=== PATIENT | male | born 1980 | race Caucasian/White ===

== ENCOUNTER 2016-07-18 17:53 | Emergency (ER) | payer OTHER ==
[~2016-07-18] VITALS: Ht 193 cm; Wt 140.1 kg
[~2016-07-18 17:53] MED LIST: ALBUTEROL SULF8.5 GM IH; ASPIR 8181 M1 PO; ASPIR-LOW81 MG PO; B COMPLETE1 EACH PO; CEFDINIR300 MG PO; ENDOCET 5-3251 EACH PO; EPIPEN ADU0.3 MG/0.3 IM; FLEXERIL10 MG PO; GABAPENTIN100 MG PO; INDOCIN25 MG PO; LAMISIL AT12 GM TP; LEVAQUIN750 MG PO; LIDODERM 5% P1 PATCH TD; LOTRIMIN AF24 GM TP; MEDROL DOSEPAK4 MG PO; METAMUCIL FIBE3.4 GM PO; MOTRIN800 MG PO; NAPROSYN500 MG PO; NAPROXEN500 MG PO; NICOTINE PATCH1 EACH TD; NITROSTAT0.4 MG SL; OXAYDO5 MG PO; OXAYDO7.5 MG PO; OXYCODONE HCL10 MG PO; PERCOCET 5/31 TABLET PO; PREDNISONE10 MG PO; PREDNISONE20 MG PO; PREDNISONE50 MG PO; PROAIR HFA8.5 GM IH; PROTONIX40 MG PO; SKELAXIN800 MG PO; TUSSIN COUGH15 MG PO; ULTRAM50 MG PO; VALIUM5 MG PO; VENTOLIN HFA18 GM IH; VITAMIN C1000 M1 PO; ZITHROMAX Z-PA250 MG PO
[2016-07-18] MEDS ORDERED: MOTRIN600 MG PO (21:10)
[2016-07-18] MEDS ORDERED: NORCO 5/3251 TABLET PO (21:10)
[2016-07-18] MEDS ORDERED: VALIUM5 MG PO (21:10)
[2016-07-18 21:22] VITALS: BP 143/95
== END 2016-07-18 21:30 | disposition home or self-care (01) ==
LOC: EME 17:53
DX: M54.5 Low back pain (principal); M54.2 Cervicalgia; K21.9 Gastro-esophageal reflux disease without esophagitis; F17.200 Nicotine dependence, unspecified, uncomplicated; Z88.0 Allergy status to penicillin
CPT/HCPCS: 99281; 99283

== ENCOUNTER 2016-08-14 11:12 | Emergency (ER) | payer OTHER ==
[~2016-08-14] VITALS: Ht 193 cm; Wt 140.9 kg
[~2016-08-14 11:12] MED LIST changes: +MOTRIN600 MG PO; +NORCO 5/3251 TABLET PO
[2016-08-14] MEDS ORDERED: NAPROSYN500 MG PO (15:34)
[2016-08-14 16:03] VITALS: BP 125/77
== END 2016-08-14 16:04 | disposition home or self-care (01) ==
LOC: EME 11:12
DX: S80.01XA Contusion of right knee, initial encounter (principal); V48.4XXA Person boarding or alighting a car injured in noncollision transport accident, initial encounter
CPT/HCPCS: 73564; 99281; 99283

== ENCOUNTER 2017-01-11 18:16 | Emergency (ER) | payer OTHER ==
[~2017-01-11] VITALS: Ht 193 cm; Wt 146.0 kg
[2017-01-11] MEDS ORDERED: ANUSOL HC,ANUCO25 MG PR (19:14)
[2017-01-11 19:33] VITALS: BP 179/73
== END 2017-01-11 19:37 | disposition home or self-care (01) ==
LOC: EME 18:16
DX: K60.0 Acute anal fissure (principal); K64.9 Unspecified hemorrhoids; L25.9 Unspecified contact dermatitis, unspecified cause; Z80.0 Family history of malignant neoplasm of digestive organs; K21.9 Gastro-esophageal reflux disease without esophagitis; Z86.19 Personal history of other infectious and parasitic diseases; F17.200 Nicotine dependence, unspecified, uncomplicated; Z88.0 Allergy status to penicillin; Z91.018 Allergy to other foods; Z91.030 Bee allergy status
CPT/HCPCS: 99281; 99284

== ENCOUNTER 2017-06-01 11:36 | Emergency (ER) | payer OTHER ==
[~2017-06-01] VITALS: Ht 195.6 cm; Wt 132.1 kg
[~2017-06-01 11:36] MED LIST changes: +ANUSOL HC,ANUCO25 MG PR
[2017-06-01 13:12] VITALS: BP 157/79
[2017-06-01] MEDS ORDERED: BACTRIM,SEPT1 TABLET PO (13:17)
[2017-06-01] MEDS ORDERED: KEFLEX500 MG PO (13:17)
== END 2017-06-01 13:39 | disposition home or self-care (01) ==
LOC: EME 11:36
DX: L02.413 Cutaneous abscess of right upper limb (principal); K21.9 Gastro-esophageal reflux disease without esophagitis; F17.200 Nicotine dependence, unspecified, uncomplicated; Z88.0 Allergy status to penicillin; Z88.5 Allergy status to narcotic agent
CPT/HCPCS: 99281; 99284